=== PATIENT | female | born 1965 ===

== ENCOUNTER 2018-08-26 16:14 | Outpatient (REF) | payer BC, SELFPAY ==
--- NOTE | 2018-08-26 15:00 | PAPFT_PTH ---
PATIENT: Almita Fabian LOC: NCN #:[id number] AGE/SX: 53/F ROOM: RE08/26/[address]: Ramona Pemberton : 1965 BED: DIS: 08/26/2018 SPEC #: [id number] RECD: 08/29/18 12:21 STATUS: TANVI REQ #: [id number] JULISSA: 08/26/18 15:[address]: Ramona Pemberton DEPT: [facility] Cytology RECD BY: Bernadette Benitez Tissues: 1 - CX/ENDOCX FOR PAP SMEARS Procedures: PAP THIN PREP/[facility] Screening HPV DNA PROBE Comments: [id number]
== END 2018-08-26 16:34 ==
LOC: NCHCN 16:14
PROVIDERS: PCP Nurse Practitioner Family; Visit Provider Nurse Practitioner Family
DX: Z12.4 Encounter for screening for malignant neoplasm of cervix (principal); Z11.51 Encounter for screening for human papillomavirus (HPV); Z00.00 Encounter for general adult medical examination without abnormal findings; Z01.419 Encounter for gynecological examination (general) (routine) without abnormal findings
CPT/HCPCS: 87491; 87591; 88142; 87624

== ENCOUNTER 2018-09-29 10:14 | Outpatient (REF) | payer BC, SELFPAY ==
[2018-09-29 22:06] LABS: Hemoglobin A1C 5.5 % (4.5-6.2)
[2018-09-29 22:17] LABS: Vitamin D 25 Total 33.9 ng/ml (30-100)
[2018-09-29 22:20] LABS: ALT 20 U/L (12-78); AST 13 U/L (15-37); Anion Gap 9.3 mmol/L (3-11); BUN 17 mg/dL (7-18); CO2 27.7 mmol/L (21.0-32.0); CREATININE 0.72 mg/dL (0.55-1.02); Calcium 8.9 mg/dL (8.5-10.1); Calculated LDL 160; Chloride 108 mmol/L (98-107); Cholesterol 221 mg/dL (50-200); Glucose 88 mg/dL (70-100); HDL Cholesterol 49 mg/dL (40-60); Potassium 4.1 mmol/L (3.5-5.1); Sodium 145 mmol/L (136-145); TSH (W/Ref FT4) 2.43 uIU/mL (0.358-3.74); Triglyceride 62 mg/dL (30-150); Vitamin B12 312 pg/mL (193-986)
== END 2018-09-29 10:34 ==
LOC: NCHCN 10:14
PROVIDERS: PCP Nurse Practitioner Family; Visit Provider Nurse Practitioner Family
DX: Z00.00 Encounter for general adult medical examination without abnormal findings (principal); F32.9 Major depressive disorder, single episode, unspecified; Z86.39 Personal history of other endocrine, nutritional and metabolic disease; Z86.79 Personal history of other diseases of the circulatory system; Z13.220 Encounter for screening for lipoid disorders
CPT/HCPCS: 80048; 80061; 82306; 83721; 82607; 83036; 84443; 84450; 84460

== ENCOUNTER 2018-12-22 16:56 | Outpatient (REF) | payer BC, SELFPAY ==
[2018-12-22 21:57] LABS: HCT 42.9 % (36.0-46.0); HGB 13.6 g/dL (12.0-15.5); Mean Corp. HGB Concentration 31.7 g/dL (32.0-36.0); Mean Corpuscular Hemoglobin 30.4 pg (27.0-33.0); Mean Corpuscular Volume 95.8 fL (80-95); Mean Platelet Volume 9.3 fL (8.0-11.0); Platelet Count 300 x1000/uL (130-400); RBC 4.48 m/cumm (4.00-5.20); RBC Distribution Width 13.5 % (11.7-14.6); White Blood Cell Count 5.99 k/cumm (4.4-10.8)
[2018-12-26 12:09] LABS: Lyme Ab w Rflx to Lyme Confirm Negative
[2018-12-26 15:50] LABS: Anaplasma phagocytophilum Negative (Negative); B. miyamotoi PCR Negative (Negative); Babesia divergens/MO-1 Negative (Negative); Babesia duncani Negative (Negative); Babesia microti Negative (Negative); Ehrlichia chaffeensis Negative (Negative); Ehrlichia ewingii/canis Negative (Negative); Ehrlichia muris eauclairensis Negative (Negative)
== END 2018-12-22 17:16 ==
LOC: NCHCN 16:56
PROVIDERS: PCP Nurse Practitioner Family; Visit Provider Nurse Practitioner Family
DX: M77.52 Other enthesopathy of left foot and ankle (principal); M25.572 Pain in left ankle and joints of left foot
CPT/HCPCS: 85027; 87798; 86618

== ENCOUNTER 2020-10-16 11:44 | Outpatient (REF) | payer BC, SELFPAY ==
[2020-10-16 14:06] LABS: ALT 17 U/L (14-59); AST 6 U/L (15-37); Anion Gap 7.2 mmol/L (3-11); BUN 23 mg/dL (7-18); CO2 30.8 mmol/L (21.0-32.0); CREATININE 1.1 mg/dL (0.55-1.02); Calcium 8.8 mg/dL (8.5-10.1); Calculated LDL 138 mg/dL (<100); Chloride 108 mmol/L (98-107); Cholesterol 214 mg/dL (<200); Glucose 80 mg/dL (74-106); HDL Cholesterol 60 mg/dL (40-60); Potassium 4.5 mmol/L (3.5-5.1); Sodium 146 mmol/L (136-145); TSH (W/Ref FT4) 2.89 uIU/mL (0.36-3.74); Triglyceride 81 mg/dL (<150)
== END 2020-10-16 11:45 | disposition home or self-care (01) ==
LOC: NCHCN 11:44
PROVIDERS: PCP Nurse Practitioner Family; Visit Provider Nurse Practitioner Family
DX: R00.2 Palpitations (principal); E78.5 Hyperlipidemia, unspecified
CPT/HCPCS: 80048; 80061; 84443; 84450; 84460

== ENCOUNTER 2021-08-27 17:23 | Outpatient (REF) | payer BC, SELFPAY ==
[2021-08-27 20:52] LABS: Anion Gap 8.2 mmol/L (3-11); BUN 21 mg/dL (7-18); CO2 29.8 mmol/L (21.0-32.0); Calcium 9.2 mg/dL (8.5-10.1); Chloride 108 mmol/L (98-107); Estimated GFR 56.95 (mL/min/1.73m2); Glucose 91 mg/dL (74-106); Potassium 4.5 mmol/L (3.5-5.1); Sodium 146 mmol/L (136-145)
== END 2021-08-27 17:24 | disposition home or self-care (01) ==
LOC: NCHCN 17:23
PROVIDERS: PCP Nurse Practitioner Family; Visit Provider Nurse Practitioner Psychiatric/Mental Health
DX: Z00.00 Encounter for general adult medical examination without abnormal findings (principal); F32.9 Major depressive disorder, single episode, unspecified
CPT/HCPCS: 80048; 82306

== ENCOUNTER 2021-10-15 18:37 | Outpatient (REF) | payer BC, SELFPAY ==
[2021-10-15 16:26] LABS: Vitamin B12 378 pg/mL (193-986)
== END 2021-10-15 18:38 | disposition home or self-care (01) ==
LOC: LBN 18:37
PROVIDERS: PCP Nurse Practitioner Family; Visit Provider Nurse Practitioner Adult Health
DX: R41.3 Other amnesia (principal)
CPT/HCPCS: 82607

== ENCOUNTER 2022-12-01 19:37 | Outpatient (REF) | payer BC, SELFPAY ==
[2022-12-01 15:00] LABS: HCT 40.7 % (36.0-46.0); HGB 13.1 g/dL (11.2-15.7); MCH 30.5 pg (27.0-33.0); MCHC 32.2 % (32.0-36.0); MCV 95 fL (80-95); MPV 9.1 fL (8.0-11.0); Platelet Count 284 10^3/uL (130-400); RBC 4.29 10^6/uL (3.93-5.22); RDW 12.8 % (11.7-14.6); WBC 6.06 10^3/uL (4.4-10.8)
[2022-12-01 15:17] LABS: ALT 17 U/L (14-59); AST 12 U/L (15-37); Albumin 3.8 g/dL (3.4-5.0); Alkaline Phosphatase 72 U/L (46-116); Anion Gap 5.3 mmol/L (3-11); BUN 19 mg/dL (7-18); Bilirubin, Total 0.6 mg/dL (0.2-1.0); CO2 30.7 mmol/L (21.0-32.0); CREATININE 0.9 mg/dL (0.55-1.02); Calcium 9.3 mg/dL (8.5-10.1); Calculated LDL 152 mg/dL (<100); Chloride 104 mmol/L (98-107); Cholesterol 232 mg/dL (<200); Estimated GFR 73.64 (mL/min/1.73m2); Glucose 84 mg/dL (74-106); HDL Cholesterol 67 mg/dL (40-60); Sodium 140 mmol/L (136-145); Total Protein 6.8 g/dL (6.4-8.2); Triglyceride 65 mg/dL (<150)
[2022-12-01 21:28] LABS: Hemoglobin A1C 5.4 % (<5.7)
== END 2022-12-01 19:38 | disposition home or self-care (01) ==
LOC: NCHCN 19:37
PROVIDERS: PCP Nurse Practitioner Family; Visit Provider Nurse Practitioner Family
DX: Z00.00 Encounter for general adult medical examination without abnormal findings (principal); E78.5 Hyperlipidemia, unspecified; R73.09 Other abnormal glucose; Z86.39 Personal history of other endocrine, nutritional and metabolic disease
CPT/HCPCS: 80053; 80061; 85027; 83036

== ENCOUNTER 2024-01-14 15:49 | Outpatient (REF) | payer BC, SELFPAY ==
[2024-01-14 21:26] LABS: HCT 43.2 % (36.0-46.0); MCH 30.7 pg (27.0-33.0); MCHC 32.4 % (32.0-36.0); MCV 95 fL (80-95); MPV 8.7 fL (8.0-11.0); Platelet Count 316 10^3/uL (130-400); RBC 4.56 10^6/uL (3.93-5.22); RDW 13.1 % (11.7-14.6); RDW-SD 45.8 fL; WBC 7.15 10^3/uL (4.4-10.8)
[2024-01-14 21:37] LABS: ALT 20 U/L (14-59); AST 11 U/L (15-37); Albumin 3.9 g/dL (3.4-5.0); Alkaline Phosphatase 83 U/L (46-116); Anion Gap 9.1 mmol/L (3-11); BUN 22 mg/dL (7-18); Bilirubin, Total 0.45 mg/dL (0.2-1.0); CO2 27.9 mmol/L (21.0-32.0); CREATININE 0.9 mg/dL (0.55-1.02); Calcium 9.7 mg/dL (8.5-10.1); Calculated LDL 202 mg/dL (<100); Chloride 105 mmol/L (98-107); Cholesterol 281 mg/dL (<200); Estimated GFR 73.19 (mL/min/1.73m2); Glucose 85 mg/dL (74-106); HDL Cholesterol 60 mg/dL (40-60); Potassium 4.3 mmol/L (3.5-5.1); Sodium 142 mmol/L (136-145); Triglyceride 99 mg/dL (<150)
[2024-01-14 21:52] LABS: Hemoglobin A1C 5.5 % (<5.7)
== END 2024-01-14 15:50 | disposition home or self-care (01) ==
LOC: NCHCN 15:49
PROVIDERS: PCP Nurse Practitioner Family; Visit Provider Nurse Practitioner Family
DX: Z00.00 Encounter for general adult medical examination without abnormal findings (principal); E66.9 Obesity, unspecified; E78.5 Hyperlipidemia, unspecified
CPT/HCPCS: 80053; 80061; 85027; 83036

== ENCOUNTER 2024-07-14 11:20 | Outpatient (REF) | payer BC, SELFPAY ==
--- NOTE | 2024-07-14 08:30 | PAPFT_PTH ---
PATIENT: Almita Fabian LOC: [facility]#:[id number] AGE/SX: 59/F ROOM: RE07/14/[address]: Ramona Pemberton : 1965 BED: DIS: 07/14/2024 SPEC #: [id number] RECD: 07/14/24 18:29 STATUS: TANVI REKal #: [id number] JULISSA: 07/14/24 08:[address]: Ramona Pemberton DEPT: [facility] Cytology RECD BY: Cheryl Rhodes Tissues: 1 - CX/ENDOCX FOR PAP SMEARS Procedures: PAP THIN PREP/[facility] Screening HPV DNA PROBE Comments: [id number] (HPV 16 & 18/45) (CHLAMYDIA/GC)
[2024-07-17 12:47] LABS: Chlamydia Result Negative (Negative); GC Result Negative (Negative)
== END 2024-07-14 11:21 | disposition home or self-care (01) ==
LOC: NCHCN 11:20
PROVIDERS: PCP Nurse Practitioner Family; Visit Provider Nurse Practitioner Family
DX: Z11.51 Encounter for screening for human papillomavirus (HPV) (principal); Z01.419 Encounter for gynecological examination (general) (routine) without abnormal findings; Z11.3 Encounter for screening for infections with a predominantly sexual mode of transmission; R87.618 Other abnormal cytological findings on specimens from cervix uteri
CPT/HCPCS: 87491; 87591; 88142; 87624